=== PATIENT | male | born 1985 | race African-American/Black ===

== ENCOUNTER 2018-07-08 17:30 | Emergency (ER) | payer SELFPAY ==
[~2018-07-08] VITALS: Ht 175.3 cm; Wt 80.0 kg
[2018-07-08] MEDS ORDERED: IBUPROFEN 600MG TABLET PO ONE (20:30)
[2018-07-08 20:44] VITALS: BP 129/66
== END 2018-07-08 20:43 | disposition home or self-care (01) ==
LOC: ER 18:56
DX: S63.501A Unspecified sprain of right wrist, initial encounter (principal); S39.012A Strain of muscle, fascia and tendon of lower back, initial encounter; V49.49XA Driver injured in collision with other motor vehicles in traffic accident, initial encounter; Y93.89 Activity, other specified; Y92.410 Unspecified street and highway as the place of occurrence of the external cause
CPT/HCPCS: 99282